=== PATIENT | male | born 1960 | race African-American/Black ===

== ENCOUNTER → 2023-10-16 | Day surgery (SDC) | payer MEDICAID ==
[~2023-10-16] VITALS: Ht 175.3 cm; Wt 49.9 kg
[~2023-10-16] MED LIST: BALANCED SALT IRRIG SOLN 15ML ONE; BALANCED SALT IRRIG SOLN COMB1 500ML OP NR; BRIM15DR8 EACHEYE; CYCLOPENTOLATE HCL 1% OPHTH DROPS 2ML RIGHTEYE ONE; DEXAMETHASONE 4MG/ML 1ML VIAL ONE; FENTANYL CITRATE/PF 50MCG/ML 2ML VIAL IV PRN; FENTANYL CITRATE/PF 50MCG/ML 2ML VIAL ONE; HYALURONATE SODIUM 10MG/ML 0.55ML SYRINGE IO ONE; HYDROMORPHONE HCL/PF 2MG/ML INJ IV PRN; METF-414 PO; MIDAZOLAM HCL 2 MG/2 ML VIAL ONE; ONDANSETRON HCL 4MG/2ML INJ IV PRN; ONDANSETRON HCL 4MG/2ML INJ ONE; PHENYLEPHRINE HCL 10% OPHTH DROPS 5ML RIGHTEYE ONE; PROPOFOL 200MG/20ML VIAL IV ONE; SITA1TAB2 PO; TROPICAMIDE 1% OPHTH DROPS 15ML RIGHTEYE ONE; TRYPAN BLUE 0.5 ML DISP.SYRIN IO ONE
[2023-10-16] MEDS: SODIUM CHLORIDE 0.9% 1,000 ML IV SCH (06:51)
== END | disposition home or self-care (01) ==
LOC: OR 05:34
PROVIDERS: ATTEND Ophthalmology
DX: E11.36 Type 2 diabetes mellitus with diabetic cataract (principal); H25.21 Age-related cataract, morgagnian type, right eye; I10 Essential (primary) hypertension; Z79.84 Long term (current) use of oral hypoglycemic drugs; Z79.899 Other long term (current) drug therapy; Z86.73 Personal history of transient ischemic attack (TIA), and cerebral infarction without residual deficits
CPT/HCPCS: 66982; 82962; J3010; J3490 ×4; J1100; J2250; J2405; J2704; V2632; Q9957

== ENCOUNTER 2024-03-25 05:51 | Day surgery (SDC) | payer MEDICAID ==
[~2024-03-25] VITALS: Ht 175.3 cm; Wt 59.0 kg
[~2024-03-25 05:51] MED LIST changes: +ASCO500C18 MT; -BALANCED SALT IRRIG SOLN 15ML ONE; -BALANCED SALT IRRIG SOLN COMB1 500ML OP NR; -CYCLOPENTOLATE HCL 1% OPHTH DROPS 2ML RIGHTEYE ONE; -DEXAMETHASONE 4MG/ML 1ML VIAL ONE; -FENTANYL CITRATE/PF 50MCG/ML 2ML VIAL IV PRN; -FENTANYL CITRATE/PF 50MCG/ML 2ML VIAL ONE; +FERR-71 MT; -HYALURONATE SODIUM 10MG/ML 0.55ML SYRINGE IO ONE; -HYDROMORPHONE HCL/PF 2MG/ML INJ IV PRN; +INSU100I28 SQ; +METF-414 MT; -MIDAZOLAM HCL 2 MG/2 ML VIAL ONE; -ONDANSETRON HCL 4MG/2ML INJ IV PRN; -ONDANSETRON HCL 4MG/2ML INJ ONE; -PHENYLEPHRINE HCL 10% OPHTH DROPS 5ML RIGHTEYE ONE; -PROPOFOL 200MG/20ML VIAL IV ONE; +SENN-371 MT; -TROPICAMIDE 1% OPHTH DROPS 15ML RIGHTEYE ONE; -TRYPAN BLUE 0.5 ML DISP.SYRIN IO ONE
[2024-03-25] MEDS ORDERED: CYCLOPENTOLATE HCL 1% OPHTH DROPS 2ML RIGHTEYE NR (06:15)
[2024-03-25] MEDS ORDERED: TROPICAMIDE 1% OPHTH DROPS 15ML RIGHTEYE NR (06:15)
[2024-03-25] MEDS ORDERED: PHENYLEPHRINE HCL 10% OPHTH DROPS 5ML RIGHTEYE NR (06:15)
[2024-03-25 06:43] LABS: CHLORIDE 99 mEq/L (98-107); POTASSIUM 4.7 mEq/L (3.5-5.1); SODIUM 135 mEq/L (136-145)
[2024-03-25 06:44] LABS: CALCIUM 10.1 mg/dL (8.7-10.4); CARBON DIOXIDE 29 mEq/L (21-32)
[2024-03-25 06:46] LABS: BASOPHILS % 0.5 % (0.0-2.0); EOSINOPHILS % 5.3 % (0.0-5.0); HEMOGLOBIN. 8.7 g/dL (14.0-18.0); LYMPHOCYTES % 27.8 % (20.0-50.0); MEAN CORPUSCULAR HEMOGLOBIN 28.6 pg (28.0-32.0); MEAN CORPUSCULAR HGB CONC 32.3 g/dL (31.0-37.0); MEAN CORPUSCULAR VOLUME 88.5 fL (80.0-94.0); MEAN PLATELET VOLUME 8.9 fl (7.4-10.4); MONOCYTES % 7.8 % (2.0-8.0); NEUTROPHILS % 58.6 % (40.0-76.0); PLATELET 286 x1000/uL (130-400); RED BLOOD CELL COUNT 3.05 mill/uL (4.7-6.1); RED CELL DISTRIBUTION WIDTH 13.1 % (11.6-14.6); WHITE BLOOD COUNT 5.8 x1000/uL (4.5-11.0)
[2024-03-25 06:49] LABS: UREA NITROGEN BLOOD 18 mg/dL (9-23)
[2024-03-25 06:57] LABS: CREATININE 1.4 mg/dL (0.6-1.3); GLUCOSE 355 mg/dL (70-105)
[2024-03-25] MEDS: INSULIN LISPRO 100 UNITS/ML SUBCUT NR (07:05)
[2024-03-25] MEDS ORDERED: HYALURONATE SODIUM 10MG/ML 0.55ML SYRINGE IO ONE (07:19)
[2024-03-25] MEDS ORDERED: ATROPINE SULFATE 1% OPHTH 2ML ONE (08:00)
[2024-03-25] MEDS: SODIUM CHLORIDE 0.9% 1,000 ML IV NR (08:15)
[2024-03-25] MEDS ORDERED: DEXTROSE 50% WATER 50ML SYRINGE IV ONE (10:30)
[2024-03-25] MEDS ORDERED: DEXTROSE 50% WATER 50ML SYRINGE IV NR (10:45)
[2024-03-25] MEDS ORDERED: ATOR40TA70 PO (15:10)
[2024-03-25] MEDS ORDERED: GABA-529 PO (15:10)
[2024-03-25] MEDS ORDERED: ASPI-1497 PO (15:10)
[2024-03-25] MEDS ORDERED: MIDAZOLAM HCL 2 MG/2 ML VIAL ONE (16:02)
[2024-03-25] MEDS ORDERED: BALANCED SALT IRRIG SOLN COMB2 500ML OP ONE (16:07)
[2024-03-25] MEDS ORDERED: HYALURONATE SODIUM 10MG/ML 0.85ML SYRINGE IO ONE (16:07)
[2024-03-25] MEDS ORDERED: ONDANSETRON HCL 4MG/2ML INJ IV PRN (16:30)
== END 2024-03-25 18:15 | disposition home or self-care (01) ==
LOC: OR 05:51
PROVIDERS: ATTEND Ophthalmology
DX: H21.41 Pupillary membranes, right eye (principal); I49.1 Atrial premature depolarization; E11.9 Type 2 diabetes mellitus without complications; I10 Essential (primary) hypertension; E78.5 Hyperlipidemia, unspecified; Z86.2 Personal history of diseases of the blood and blood-forming organs and certain disorders involving the immune mechanism; Z79.899 Other long term (current) drug therapy; Z98.890 Other specified postprocedural states; Z79.84 Long term (current) use of oral hypoglycemic drugs
CPT/HCPCS: 66635; 82947; 80048; 85025; 36415; 93005; 82962; J3490 ×3; J1815; J2250